=== PATIENT | female | born 1940 | race African-American/Black ===

== ENCOUNTER 2019-07-14 18:47 | Emergency (ER) | payer BC, OTHER ==
[~2019-07-14] VITALS: Ht 167.6 cm; Wt 72.6 kg
[~2019-07-14 18:47] MED LIST: AMLO5TAB4 PO; FURO-150 PO; LISI-600 PO
[2019-07-14 19:10] VITALS: BP_SYST 167
--- NOTE | 2019-07-14 19:10 | NUR ---
Patient triaged and placed in waiting room. VSS and patient appears in no acute distress at this time. Accompanied by DAUGTHER, awaiting available bed, and MD notified of need for MSE.
--- NOTE | 2019-07-14 20:15 | NUR ---
Called pt name in the waiting room.No answer.
--- NOTE | 2019-07-14 20:20 | NUR ---
Called pt name in the waiting room.No answer.
--- NOTE | 2019-07-14 20:25 | NUR ---
Called pt name in the waiting room.No answer.
== END 2019-07-14 20:25 | disposition left against medical advice (07) ==
LOC: SED 18:47
DX: R42 Dizziness and giddiness (principal); R11.0 Nausea; Z53.21 Procedure and treatment not carried out due to patient leaving prior to being seen by health care provider